=== PATIENT | female | born 1955 | race Caucasian/White ===

== ENCOUNTER 2016-08-15 10:13 | Emergency (ER) | payer BC ==
[2016-08-15 10:36] VITALS: BP 119/62
--- NOTE | 2016-08-15 11:01 | UC ---
Abdominal Pain Female HPI - HPI Summary HPI Summary: complaint of suprapubic pain that started approx 6 days ago having small amunts of hard round stools, pain is worse with defecation- last BM yesterday- today lots of mucus fever intermittent since the beggingin of illness denies nausea and vomiting diarrhea, denies blood in stool denies pain with urination,denies increase in frequency or urgancy of urination denies vaginal discharge, vaginal bleeding - History of Current Complaint Chief Complaint: UCGeneralIllness Stated Complaint: PERSONAL Hx Obtained From: Patient Radiates to: LLQ Character: Aching, Sharp Aggravating Factor(s): Nothing Alleviating Factor(s): Nothing Associated Signs and Symptoms: Positive: Fever, Constipation Allergies/Adverse Reactions: Allergies Allergy/AdvReac Type Severity Reaction Status Date / Time Ibuprofen [From Motrin] Allergy Anaphylatic Verified 08/15/16 10:24 Shock Penicillins Allergy Anaphylatic Verified 08/15/16 10:24 Shock Sulfa Antibiotics Allergy Rash Verified 08/15/16 10:24 PMH/Surg Hx/FS Hx/Imm Hx Previously Healthy: Yes Respiratory History Of: Reports: Asthma Cancer History Of: Denies: Breast Cancer - Surgical History Surgical History: Yes Surgery Procedure, Year, and Place: C4,5,6 are fused, Rotator cuff repair right arm, right hand carpal tunnel repair. - Family History Known Family History: Positive: Cardiac Disease, Hypertension, Diabetes - Social History Alcohol Use: Occasionally Substance Use Type: None Smoking Status (MU): Never Smoked Tobacco - Immunization History Most Recent Influenza Vaccination: NONE Most Recent Tetanus Shot: UTD Most Recent Pneumonia Vaccination: n/a Review of Systems Constitutional: Fever Skin: Negative Eyes: Negative ENT: Negative Respiratory: Negative Cardiovascular: Negative Gastrointestinal: Abdominal Pain Genitourinary: Negative Motor: Negative Neurovascular: Negative Musculoskeletal: Negative Neurological: Negative Psychological: Negative All Other Systems Reviewed And Are Negative: Yes Physical Exam Triage Information Reviewed: Yes Appearance: Well-Nourished, Ill-Appearing, Pain Distress Vital Signs: Initial Vital Signs Temp 100.1 F 08/15/16 10:25 Pulse 66 08/15/16 10:25 Resp 18 08/15/16 10:25 BP 119/62 08/15/16 10:25 Pulse Ox 96 08/15/16 10:25 Vital Signs Reviewed: Yes Eyes: Positive: Conjunctiva Clear ENT: Positive: Pharynx normal, TMs normal Neck: Positive: No Lymphadenopathy Respiratory: Positive: Lungs clear, Normal breath sounds, No respiratory distress, No accessory muscle use Cardiovascular: Positive: RRR, No Murmur, Pulses Normal, Brisk Capillary Refill Abdomen Description: Positive: No Organomegaly, Guarding, Other: - LLQ,RLQ suprapubic tenderness. Negative: CVA Tenderness (R), CVA Tenderness (L), Distended Bowel Sounds: Positive: Present Musculoskeletal: Positive: No Edema Neurological: Positive: Alert Psychological Exam: Normal Skin Exam: Normal Abd Pain Female Course/Dx - Course Course Of Treatment: exam completed. d/t fever and RLQ/LLQ tenderness with increasing pain will send to ED for further evaluation and treatment - Differential Dx/Diagnosis Differential Diagnosis: Appendicitis, Bowel Obstruction, Diverticulitis, Urinary Tract Infection Provider Diagnoses: LLQ ,RLQ pain, fever - Physician Notification/Consults Discussed Patient Care With: Denise Logan Time Discussed With Above Provider: 11:32 Discharge - Discharge Plan Condition: Stable Disposition: [facility]
== END 2016-08-15 11:20 | disposition short-term general hospital (02) ==
LOC: UCCORT 10:13
DX: R10.32 Left lower quadrant pain (principal); R10.31 Right lower quadrant pain; R50.9 Fever, unspecified; J45.909 Unspecified asthma, uncomplicated; Z88.6 Allergy status to analgesic agent; Z88.0 Allergy status to penicillin; Z88.2 Allergy status to sulfonamides
CPT/HCPCS: 81003; 99212; G0463

== ENCOUNTER 2018-03-16 20:50 | Emergency (ER) | payer BC ==
--- NOTE | 2018-03-16 20:59 | UC ---
Skin Complaint HPI - HPI Summary HPI Summary: Had trigger finger release at [facility] (uncertain name of surgeon who did the surgery), on 03/08/18. Had 2 interrupted sutures, and one came loose and fell out after a shower approx 02/23. Did a lot of baking x2 days ago, with increased pain in the hand and swelling. Tonight, her daughter (nurse) noticed ? an embedded suture with purulent discharge at the site, increased tenderness. Comes for assessment. - History of Current Complaint Time Seen by Provider: 03/16/18 20:57 Stated Complaint: RIGHT HAND CONCERN Hx Obtained From: Patient Onset/Duration: Gradual Onset, Lasting Days - 2 days of increased swelling with purulent drainage. Skin Exposure Onset/Duration: Days Ago Onset Severity: Mild Current Severity: Mild Location: Discrete - right palm over fifth mid metacarpal bone. Character: Swelling, Pruritus, Raised, Painful Aggravating Factor(s): Touch Alleviating Factor(s): Nothing Associated Signs & Symptoms: Positive: Negative Related History: Other: - recent surgery - Allergy/Home Medications Allergies/Adverse Reactions: Allergies Allergy/AdvReac Type Severity Reaction Status Date / Time ibuprofen Allergy Anaphylatic Verified 03/16/18 21:02 Shock Penicillins Allergy Anaphylatic Verified 03/16/18 21:02 Shock Sulfa (Sulfonamide Allergy Rash Verified 03/16/18 21:02 Antibiotics) Home Medications: Home Medications Acetaminophen [Acetaminophen Extra Strength] 1,000 mg PO Q4H PRN 03/16/18 [ History Confirmed 03/16/18] tiZANidine TAB* [Zanaflex TAB*] 4 mg PO BEDTIME 03/16/18 [History Confirmed ] traMADol TAB* [Ultram*] 1 tab BID PRN 03/16/18 [History Confirmed 03/16/18] Review of Systems All Other Systems Reviewed And Are Negative: Yes Constitutional: Positive: Negative Skin: Positive: Negative Eyes: Positive: Negative ENT: Positive: Negative Respiratory: Positive: Negative Cardiovascular: Positive: Negative Gastrointestinal: Positive: Negative Genitourinary: Positive: Negative Motor: Positive: Negative Neurovascular: Positive: Negative Musculoskeletal: Positive: Other: - pain in right hand. Neurological: Positive: Negative Psychological: Positive: Anxious Is Patient Immunocompromised?: No PMH/Surg Hx/FS Hx/Imm Hx Previously Healthy: Yes Psychological History: Anxiety - Surgical History Surgical History: Yes Surgery Procedure, Year, and Place: C4,5,6 are fused, Rotator cuff repair right arm, right hand carpal tunnel repair. - Family History Known Family History: Positive: Cardiac Disease, Hypertension, Diabetes - Social History Lives: With Family Alcohol Use: Occasionally Substance Use Type: None Smoking Status (MU): Never Smoked Tobacco - Immunization History Most Recent Influenza Vaccination: NONE Most Recent Tetanus Shot: UTD Most Recent Pneumonia Vaccination: n/a Physical Exam Triage Information Reviewed: Yes Appearance: Well-Appearing, No Pain Distress Respiratory: Positive: Lungs clear Cardiovascular: Positive: RRR, No Murmur Musculoskeletal: Positive: ROM Intact - right wrist Skin Exam: Other - right palm with approx 1.5 cm incision. Medial border has a small tract and an absorbable suture is present. Scant discharge. Erythema approx 5 mm each side of incision line, mildly tender. No lymphangitis. Mild swelling over the medial border of the hand. Can fully extend digits without pain Course/Dx - Course Course Of Treatment: cephalexin for treatment of cellulitis. Assessment with magnification does not show evidence of an embedded suture. Keep area clean and dry and covered. - Differential Diagnoses - Skin Complaint Differential Diagnoses: Cellulitis - Diagnoses Provider Diagnoses: cellulitis at surgical incision site with possible embedded suture Discharge - Sign-Out/Discharge Documenting (check all that apply): Patient Departure All imaging exams completed and their final reports reviewed: No Studies - Discharge Plan Condition: Stable Disposition: HOME Prescriptions: Cephalexin CAP* [Keflex 500 CAP*] 500 mg PO TID #15 cap Patient Education Materials: Cellulitis (ED) Referrals: Wenceslao Douglas MD [Primary Care Provider] - Additional Instructions: Please remove the dressing from your hand tomorrow, and cleanse the wound with soapy water, dry well, and apply a light layer of topical antibiotic and a light dressing. Take cephelexin 3 times daily for 5 days. It is possible that if there is a retained suture, it will fester out. Please refrain from exploring the wound: if there is increasing drainage, pain or redness, please call your surgeon for advice. Follow up with your surgeon on Monday as arranged. - Billing Disposition and Condition Condition: STABLE Disposition: Home
[2018-03-16 21:02] VITALS: BP 126/61
[2018-03-16] MEDS ORDERED: Cephalexin CAP* 500 MG PO ONE (21:23)
== END 2018-03-16 21:48 | disposition home or self-care (01) ==
LOC: UCCORT 20:50
DX: L03.113 Cellulitis of right upper limb (principal); Z48.811 Encounter for surgical aftercare following surgery on the nervous system; Z88.0 Allergy status to penicillin; Z88.6 Allergy status to analgesic agent; Z88.1 Allergy status to other antibiotic agents
CPT/HCPCS: 99212; A9270-GY; G0463

== ENCOUNTER 2018-08-19 14:25 | Emergency (ER) | payer BC ==
--- OUTSIDE RECORDS SUMMARY | 2018-08-19 14:37 | XMS REPORT | Continuity of Care Document ---
:1955 External Reference #:[id number] Author Name Jessica Mckeon M.D. Address [address] [place] [address] Care Team Providers Name Role Phone Jessica Mckeon M.D. 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 Payers Description No Information Available Advance Directives Description No Information Available Problems Description No Information Family History Date Family Member(s) Observation Comments General Diabetes Father due to Suicide () Mother 85 Mother Hypertension Children 3 Siblings 4 Social History Type Date Description Comments Sex Unknown ETOH Use Occasionally consumes alcohol Tobacco Use Start: Unknown Patient has never smoked Recreational Drug Use Denies Drug Use Allergies, Adverse Reactions, Alerts Active Allergies Reaction Severity Comments Date Penicillin 07/24/2018 Ibuprofen 07/24/2018 ALL Sulfa Drugs 07/24/2018 Medications Active Medications SIG Qnty Indications Ordering Provider Date Sertraline HCL 1 by mouth 30tabs F41.9 Jessica Mckeon, 07/24/2018 25mg every day M.D. Tablets F33.9 Tizanidine HCL 4mg Tablets Unknown History Medications Paroxetine HCL 10mg F41.9 Unknown - 07/24 Tablets F33.9 Immunizations Description No Information Available Vital Signs Date Vital Result Comment 07/24/2018 3:47pm BP Systolic 130 mmHg BP Diastolic 80 mmHg Height 61 inches 5'1" Weight 200.00 lb BMI (Body Mass Index) 37.8 kg/m2 Heart Rate 61 /min Respiratory Rate 18 /min Results Description No Information Available Procedures Description No Information Available Encounters Type Date Location Provider Dx Diagnosis Office Visit 07/24/2018 [facility] Mike, Ahmad M., F41.9 Anxiety disorder, 3:30p M.D. unspecified F33.9 Major depressive disorder, recurrent, unspecified G47.00 Insomnia, unspecified N95.1 Menopausal and female climacteric states L20.9 Atopic dermatitis, unspecified J30.9 Allergic rhinitis, unspecified J45.909 Unspecified asthma, uncomplicated H52.4 Presbyopia M50.30 Other cervical disc degeneration, unsp cervical region M25.519 Pain in unspecified shoulder M54.12 Radiculopathy, cervical region R26.81 Unsteadiness on feet H81.02 Meniere's disease, left ear H90.42 Snsrnrl hear loss, uni, left ear, w unrestr hear cntra side R25.1 Tremor, unspecified N39.46 Mixed incontinence Plan of Treatment Future Appointment(s):08/28/2018 4:15 pm - Jessica Mckeon M.D. at [facility]07/24/2018 - Jessica Mckeon M.D.F41.9 Anxiety disorder, unspecifiedNew Medication:Sertraline HCL 25 mg - 1 by mouth every dayF33.9 Major depressive disorder, recurrent, unspecifiedNew Medication:Sertraline HCL 25 mg - 1 by mouth every dayG47.00 Insomnia, jywbtbrvbsvF03.1 Menopausal and female climacteric joujunG47.9 Atopic dermatitis, lnkxzbuopmyO22.9 Allergic rhinitis, zlpljkixvphE47.909 Unspecified asthma, pataxdtavelurS14.4 MnckjwnkteA81.30 Other cervical disc degeneration, unspecified cervical bsfgrS33.519 Pain in unspecified rgpnbphbD80.12 Radiculopathy, cervical bsgpqyM46.81 Unsteadiness on feetH81.02 Meniere's disease, left earH90.42 Sensorineural hearing loss, unilateral, left ear, with wufuyN08.1 Tremor, inpanrjraodY41.46 Mixed incontinence
[2018-08-19 15:26] VITALS: BP 138/70
[2018-08-19] MEDS ORDERED: Tetan/Diph/Pertus SYR(Tdap)* 0.5 ML SYR(BOOSTRIX) use SYR IM ONE (15:39)
--- NOTE | 2018-08-19 15:39 | UC ---
Laceration HPI - HPI Summary HPI Summary: 63 y/o female presents to the urgent care c/o laceration over the dorsal side of her Rt hand w/ a large glass about 1420pm today. 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 Bleeding has stopped w/ pressure, but it returns w/ movement of her index finger. Pain is mild at touch 3/10, but she can move finger w/o any difficulty. Pt can't recall when was the last Tetanus vaccine. Pt denies fever, numbness or tingling sensation over the Rt hand or fingers, SOB, chest pain, dizziness, abdominal pain, N/V/D. - History Of Current Complaint Chief Complaint: UCLaceration Stated Complaint: RIGHT HAND LACERATION Time Seen by Provider: 08/19/18 15:32 Hx Obtained From: Patient Hx Last Menstrual Period: N/A Laceration Location: Hand - Rt hand doersal side near the 2nd MCPJ laceration w / a glass Mechanism Of Injury: Sharp Trauma Onset/Duration: Lasting Hours - 1hrs ago Severity: Moderate Pain Intensity: 7 Pain Scale Used: 0-10 Numeric Aggravating Factors: Movement, Other: - touch, Related History: Dominant Hand Right - Allergies/Home Medications Allergies/Adverse Reactions: Allergies Allergy/AdvReac Type Severity Reaction Status Date / Time ibuprofen Allergy Anaphylatic Verified 08/19/18 15:22 Shock Penicillins Allergy Anaphylatic Verified 08/19/18 15:22 Shock Sulfa (Sulfonamide Allergy Rash Verified 08/19/18 15:22 Antibiotics) Home Medications: Home Medications Sertraline* [Zoloft*] 1 tab BEDTIME 08/19/18 [History Confirmed 08/19/18] PMH/Surg Hx/FS Hx/Imm Hx Previously Healthy: Yes - Pt denies PMHX - Surgical History Surgical History: Yes Surgery Procedure, Year, and Place: C4,5,6 are fused, Rotator cuff repair right arm, right hand carpal tunnel repair. right pinky trigger finger - Family History Known Family History: Positive: Cardiac Disease, Hypertension, Diabetes - Social History Occupation: Employed Full-time Lives: With Family Alcohol Use: Occasionally Substance Use Type: None Smoking Status (MU): Never Smoked Tobacco - Immunization History Most Recent Influenza Vaccination: NONE Most Recent Pneumonia Vaccination: n/a Hx Tetanus, Diphtheria Vaccination: No - Pt can't recall when was the last Tdap Review of Systems All Other Systems Reviewed And Are Negative: Yes Constitutional: Positive: Negative Skin: Positive: Other - laceration w/ a glan of Rt hand Eyes: Positive: Negative ENT: Positive: Negative Respiratory: Positive: Negative Cardiovascular: Positive: Negative Gastrointestinal: Positive: Negative Genitourinary: Positive: Negative Motor: Positive: Negative Neurovascular: Positive: Negative Musculoskeletal: Positive: Other: - Rt hand pain s/p laceration Neurological: Positive: Negative Psychological: Positive: Negative Is Patient Immunocompromised?: No Physical Exam - Summary Physical Exam Summary: Vital Signs Reviewed: Yes General: well developed, well nourished female sitting in the examining table w/ o any apparent distress Eye Exam: Normal Eyes: Positive: Conjunctiva Clear - PERRLA, EOMI, fundi grossly normal ENT: Positive: Normal ENT inspection, Hearing grossly normal, Pharynx normal, TMs normal Neck: Positive: Supple, Nontender, No Lymphadenopathy Respiratory: Positive: Chest non-tender, Lungs clear, Normal breath sounds, No respiratory distress Cardiovascular: Positive: RRR, No Murmur, Pulses Normal, Brisk Capillary Refill Abdomen Description: Positive: Nontender, No Organomegaly, Soft. Negative: CVA Tenderness (R), CVA Tenderness (L) Bowel Sounds: Positive: Present Musculoskeletal: Positive: Strength Intact, ROM Intact, No Edema Neurological: Positive: Alert, Muscle Tone Normal Psychological Exam: Normal Skin: Positive:dorsal side of the second MCPJ of Rt hand with a linear superficial laceration about 1.1cm in size, bleeding, no foreign body observed. mild tenderness to palpation, no ecchymosis around elbow. FROM of RT arm, sensation intact, capillary refill brisk, and pulses WNL. Triage Information Reviewed: Yes Vital Signs: Initial Vital Signs Temp 98.5 F 08/19/18 15:21 Pulse 65 08/19/18 15:21 Resp 16 08/19/18 15:21 BP 138/70 08/19/18 15:21 Pulse Ox 98 08/19/18 15:21 Laceration Repair - Laceration Repair 1 Description: Linear - superficial linear laceration aver the dorsal side of Rt second MCPJ. Laceration Size After Repair: Length (cm) - 1.1cm Modified For Repair: Yes Type Injection: Local Anesthesia Used: 1.0% Lido - 1ml Cleansing Completed Via Routine Prep: Yes Irrigation With Pressure Irrigation Device: Yes Closure Material: Sutures - 3 Closure Method: Single Layer Suture Of: Skin, SQ Suture Type: Nylon - 5.0 Laceration Course/Dx - Course/Dx Course Of Treatment: 63 y/o female presents to the urgent care c/o laceration over the dorsal side of her Rt hand w/ a large glass about 1420pm today. 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 Bleeding has stopped w/ pressure, but it returns w/ movement of her index finger. Pain is mild at touch 3/10, but she can move finger w/o any difficulty. Pt can't recall when was the last Tetanus vaccine. Pt denies fever, numbness or tingling sensation over the Rt hand or fingers, SOB, chest pain, dizziness, abdominal pain, N/V/D. Pt dorsal side of the second MCPJ of Rt hand with a linear superficial laceration about 1.1cm in size, bleeding, no foreign body observed. mild tenderness to palpation on examination. LACERATION PROCEDURE NOTE : . Copious irrigation was done with saline by the nurse and the wound explored. There was no FB or deep structure injury noted. FROM of Rt index finger and Rt hand. procedure was explained and consent obtained, Timeout performed. The wound was anesthetized with 1mL of 1% lido with good anesthesia. Sterile drape and prep were don. There were 3 sutures with 5.0 nylon type of suture. The length of the wound after closure was 1.1cm. No debridement done. Pt tolerated the procedure well without adverse effects. Neurovascular intact and FROM of Rt hand and fingers. Tdap ordered and applied by nurse. Pt advised to f/u suture removal in 10-12 days and if any signs of infection develop to immediately return to the urgent care of PCP for further management and treatment. Pt understood and agreed and left the clinic ambulating A&Ox3. - Differential Dx - Laceration/Wound Differental Diagnoses: Abrasion, Laceration, Puncture Wound, Tendon Laceration - Diagnosis Provider Diagnosis: Laceration of right hand Discharge - Sign-Out/Discharge Documenting (check all that apply): Patient Departure - d/c home All imaging exams completed and their final reports reviewed: No Studies - Discharge Plan Condition: Stable Disposition: HOME Patient Education Materials: Care For Your Stitches (ED), Laceration (ED) Referrals: Jessica Mckeon MD [Primary Care Provider] - 2 Weeks Additional Instructions: 1-Please apply Triple topical antibiotic over the wound. Keep wound clean and dry 2- F/u suture removal in 10-12 days w/ your PCP or here at the urgent care. 3-Take Ibuprofen or Tylenol PO q6-8hrs prn for pain or swelling. 4- If you develop fever or redness around your finger please return to the Urgent care or f/u w/ your PCP for further management. 5- You were given the Tdap today - Billing Disposition and Condition Condition: STABLE Disposition: Home
[2018-08-19] MEDS ORDERED: Lidocaine 1%* 5 ML VIAL INJ ONE (15:48)
== END 2018-08-19 16:39 | disposition home or self-care (01) ==
LOC: UCCORT 14:25
DX: S61.411A Laceration without foreign body of right hand, initial encounter (principal); Z88.2 Allergy status to sulfonamides; Z88.0 Allergy status to penicillin; Z88.8 Allergy status to other drugs, medicaments and biological substances; W25.XXXA Contact with sharp glass, initial encounter; Y92.9 Unspecified place or not applicable; Y99.0 Civilian activity done for income or pay
CPT/HCPCS: 12001; 90471; 90715; 99212; G0463